=== PATIENT | female | born 1975 | race Caucasian/White ===

== ENCOUNTER 2021-04-07 06:03 | Emergency (ER) | payer OTHER, SELFPAY ==
[2021-04-07 06:08] VITALS: BP 136/71; PULSE 89; RESP 16; TEMP 37; O2SAT 99
--- NOTE | 2021-04-07 08:06 | ED.SKABFB ---
HPI - Skin/Abscess/Foreign Bdy General Chief complaint: Skin/Abscess/Foreign Body Stated complaint: left upper posterior leg abscess Time Seen by Provider: 04/07/21 08:03 Source: patient Mode of arrival: ambulatory Limitations: no limitations History of Present Illness HPI narrative: 45 years old white female presents with questionable spider bite at the back of left thigh 4 days ago. Patient works in a warehouse, sleeps in the basement. Patient is diabetic. Patient denies any fever, chills, nausea, vomiting. Related Data Allergies Allergy/AdvReac Type Severity Reaction Status Date / Time amoxicillin Allergy Unknown Hives Verified 04/07/21 06:12 erythromycin base Allergy Unknown Hives Verified 04/07/21 06:12 Penicillins Allergy Unknown Unknown Verified 04/07/21 06:12 Review of Systems Review of Systems: CONSTITUTIONAL: Denies fever, chills, or sweats. EYES: Denies visual changes, redness, or discharge. ENT: Denies rhinorrhea, congestion, sore throat, or otalgia. CARDIOVASCULAR: Denies chest pain, palpitations, or edema. RESPIRATORY: Denies cough or dyspnea. GASTROINTESTINAL: Denies abdominal pain, nausea, vomiting, or diarrhea. GENITOURINARY: Denies dysuria or hematuria. SKIN: Denies rash or itching. MUSCULOSKELETAL: Denies back pain, joint pain, or myalgia. NEUROLOGIC: Denies headache, numbness, or weakness. PSYCHIATRIC: Denies anxiety or depression. Exam Narrative: General appearance: Well-developed, well-nourished Skin: Normal color, 2 cm x 3 cm red spot at the back of left thigh, with an opening in the middle of it, no discharge, tender, subcutaneous induration, no fluctuation Head: Normocephalic, nontraumatic Chest and respiratory: Airway patent, no respiratory distress, no accessory muscle use Heart: Regular rate/rhythm Musculoskeletal: Normal range of motion, nontender back Neurologic: Alert and oriented ?3, Course Course Emergency Course: Stable Vital Signs Vital signs: Vital Signs Temperature 37.0 C 04/07/21 06:08 Pulse Rate 89 04/07/21 06:08 Respiratory Rate 16 04/07/21 06:08 Blood Pressure 136/71 04/07/21 06:08 Pulse Oximetry 99 04/07/21 06:08 Temperature 37.0 C 04/07/21 06:08 Pulse Rate 89 04/07/21 06:08 Respiratory Rate 16 04/07/21 06:08 Blood Pressure 136/71 04/07/21 06:08 Pulse Oximetry 99 04/07/21 06:08 MDM - Skin/Abscess/Foreign Bdy MDM Narrative Medical decision making narrative: Questionable insect bite with localized cellulitis Lab Data Result diagrams: 04/07/21 08:13 04/07/21 08:13 Labs: Lab Results 04/07/21 04/07/21 Range/Units 08:13 08:13 WBC 6.4 (4.5-10.0) K/mm3 RBC 4.43 (4.2-5.4) M/mm3 Hgb 13.3 (12.0-15.0) g/dL Hct 39.1 (37.0-47.0) % MCV 88.3 (80-100) fl MCH 30.0 (26-34) pg MCHC 34.0 (32-36) g/dl RDW 13.4 (11.5-14.5) % Plt Count 141 L (150-375) k/mm3 MPV 9.8 (7.4-10.4) fl Immature Gran % (Auto) 0.2 (0-0.5) % Neut % (Auto) 57.5 (45.5-73.1) % Lymph % (Auto) 30.8 (18.3-44.2) % Wythe % (Auto) 8.2 (2.6-8.5) % Eos % (Auto) 2.8 (0-4.4) % Baso % (Auto) 0.5 (0.2-1.2) % Lymph # (Auto) 1.96 (0.9-3.2) K/mm3 Wythe # (Auto) 0.5 (0.1-0.6) K/mm3 Eos # (Auto) 0.2 (0-0.3) K/mm3 Baso # (Auto) 0.0 (0.0-0.1) K/mm3 Abs Immat Gran (auto) 0.01 (0.00-0.031) K/mm3 Absolute Neuts (auto) 3.7 (1.3-6.7) K/mm3 Absolute Nucleated RBC 0.0 (0.0-0.012) K/mm3 Nucleated RBC % 0.0 (0.0-0.2) % Sodium 137 (137-145) mmol/L Potassium 3.7 (3.4-5.0) mmol/L Chloride 101 (98-107) mmol/L Carbon Dioxide 30 (22-30) mmol/L Anion Gap 6 L (8-16) mmol/L BUN 10
[2021-04-07 08:19] LABS: Basophils Percent Auto 0.5 % (0.2-1.2); Eosinophils Absolute Auto 0.2 K/mm3 (0-0.3); Eosinophils Percent Auto 2.8 % (0-4.4); Hematocrit 39.1 % (37.0-47.0); Hemoglobin 13.3 g/dL (12.0-15.0); Immature Granulocyte Absolute 0.01 K/mm3 (0.00-0.031); Immature Granulocyte Percent A 0.2 % (0-0.5); Lymphocytes Absolute Auto 1.96 K/mm3 (0.9-3.2); Lymphocytes Percent Auto 30.8 % (18.3-44.2); Mean Corpuscular Volume 88.3 fl (80-100); Mean Platelet Volume 9.8 fl (7.4-10.4); Monocytes Absolute Auto 0.5 K/mm3 (0.1-0.6); Monocytes Percent Auto 8.2 % (2.6-8.5); Neutrophils Absolute Auto 3.7 K/mm3 (1.3-6.7); Neutrophils Percent Auto 57.5 % (45.5-73.1); Platelet Count Result 141 k/mm3 (150-375); Red Blood Count 4.43 M/mm3 (4.2-5.4); Red Cell Distribution Width 13.4 % (11.5-14.5); White Blood Count 6.4 K/mm3 (4.5-10.0)
[2021-04-07] MEDS: IBUPROFEN 600 MG TABLET PO (08:23)
[2021-04-07] MEDS: HYDROcodone/acetaminophen (*CRX) 5-325 MG TABLET 1 TAB PO (08:24)
[2021-04-07 08:29] LABS: Anion Gap 6 mmol/L (8-16); Blood Urea Nitrogen 10 mg/dL (7-17); Calcium 9.1 mg/dL (8.4-10.2); Carbon Dioxide 30 mmol/L (22-30); Chloride 101 mmol/L (98-107); Estimated CRCL calculation 92 ml/min; Estimated Glomerular Filt Rate > 60; Glucose 106 mg/dL (65-110); Potassium 3.7 mmol/L (3.4-5.0); Sodium 137 mmol/L (137-145)
[2021-04-07 11:12] VITALS: BP 128/66; PULSE 80; RESP 14; TEMP 36.8; O2SAT 98
== END 2021-04-07 11:12 | disposition home or self-care (01) ==
PROVIDERS: Emergency Provider Emergency Medicine
DX: L03.116 Cellulitis of left lower limb (principal)
CPT/HCPCS: 36415; 80048; 85025; 96365; 96366; 99284; A9270; J3370

== ENCOUNTER 2022-01-12 03:14 | Outpatient (CLI) | payer BC, MEDICAID, SELFPAY ==
--- NOTE | 2022-01-05 12:56 | PC.NURSE ---
Pre Radiology instructions Report to the Outpatient Waiting Room, entrance under the green pavilion located off [facility], at time _0600 on date _01/12/22 . Procedure Time: __0800 . YOU MAY BE MONITORED AT HOSPITAL FOR UP TO 4 HOURS AFTER YOUR PROCEDURE. One visitor will be allowed to accompany the patient into the hospital. The visitor will be instructed to remain with patient at all times or leave the building due to restrictions. We will allow the visitor to come back to the postoperative area when patient is ready. NO children visitors allowed at this time. You and your visitor will be asked to self-screen and do not enter if you have any COVID symptoms. A mask is required within the hospital. Patients are to have no food or drink 6 hours prior to procedure time Driving will be restricted after the procedure, you must have a person to drive you home. Labs will be drawn in preop area and once reviewed, you will be taken to radiology area for procedure. When the procedure is completed, you will be taken to outpatient where you will be monitored for several hours. You may have one visitor in this area. Other than holding anti-coagulants, patient may take other medication(s) as scheduled. Prior to your appointment date patients are instructed to hold anti-coagulants after discussing with ordering provider to stop. If unable to discontinue anti-coagulants please notify radiologist. No aspirin or warfarin (Coumadin) for 7 days prior to the procedure. No clopidogrel (Plavix), ticagrelor (Brilinta), prasugrel (Effient) or dabigatran (Pradaxa) for 5 days prior to the procedure. No rivaroxaban (Xarelto), apixaban (Eliquis), dipyridamole (Aggrenox or Persantine) or cilostazol (Pletal) for 2 days prior to the procedure. Medications to discontinue per physician: NONE Date to take last dose: Please leave all valuables, including medications, at home the day of procedure. The hospital will not accept responsibility for valuables. Wear comfortable, loose fitting clothing. Follow any additional instructions given to you from ordering provider. Telephone instructions given to _PATIENT and asked if any additional questions and then verbalized understanding. Patient advised to call scheduling provider office or registration scheduling [phone] if any additional questions.
[2022-01-05 13:03] VITALS: BMI 36.5
[2022-01-12] VITALS (8 sets, daily range): BP systolic 123–159; BP diastolic 72–99; PULSE 57–64; RESP 14–16; TEMP 36.4; O2SAT 95–100
--- NOTE | ~2022-01-12 | XR_ITS ---
EXAMINATION: XR lumbar puncture diagnostic DATE: 01/12/2022 08:46 INDICATION: Migraine headaches TECHNIQUE: The procedure including the risks and benefits was discussed with the patient. Risks discu ssed included spinal headache, cerebrospinal fluid leak, bleeding, and infection. The patient underst ood the risks and agreed to proceed. A timeout was performed to verify the patient's name, date of , and procedure to be performed. The skin overlying the L4-L5 level was prepped and draped in usual sterile fashion. Subcutaneous 1% lidocaine was used for local anesthesia. A 5 inch 22 gauge s peter needle was advanced under fluoroscopic guidance. The needle was removed and the entry site was cleaned and dressed. There were no immediate complications. A total of 1 fluoroscopic image(s) were obtained. The amount of fluoroscopy time used during this procedure was 0.1 minutes. The patient was taken to the nursing area for observation. FINDINGS: Real-time fluoroscopy demonstrates the needle at the L4-L5 level. Opening pressure was 24 c m water. (Normal range is variably defined as 6-20 cm water and up to 25 cm water in obese patients. Pressure >25 cm water is one of the modified Dandy criteria for idiopathic intracranial hypertension) . 13 mL of clear, colorless fluid was collected in 4 tubes. Closing pressure was 15 cm water. IMPRESSION: 1. Successful fluoro-guided lumbar puncture with mildly elevated opening pressure of 24 cm water. Reviewed, dictated and finalized at location A. IMPRESSION: 1. Successful fluoro-guided lumbar puncture with mildly elevated opening pressu re of 24 cm water.
[2022-01-12 07:35] LABS: INR 1.4; Prothrombin Time 16.2 Seconds (11.1-14.7)
[2022-01-12 08:02] LABS: Mean Platelet Volume 10.6 fl (7.4-10.4); Platelet Count Result 168 k/mm3 (150-375)
[2022-01-12 09:21] LABS: Glucose CSF 107 mg/dL (40-70); Total Protein CSF 48 mg/dL (12-60)
[2022-01-12 10:02] LABS: Appearance CSF Clear (Clear); CSF source CSF; Color CSF Colorless (Colorless); Nucleated Cell CSF 2 /uL (0-5); Red Blood Cell CSF 0 (0-2)
[2022-01-12 10:03] LABS: Lymphocytes CSF 100 % (40-80)
== END 2022-01-12 11:02 | disposition home or self-care (01) ==
PROVIDERS: PCP Physician Assistant; Referring Provider Psychiatry & Neurology Neurology; Visit Provider Radiology Diagnostic Radiology
PROC: 009U3ZZ Drainage of Spinal Canal, Percutaneous Approach (ICD-10-PCS; CPT 62328; principal; 2022-01-12 08:00)
DX: G43.909 Migraine, unspecified, not intractable, without status migrainosus (principal); G93.2 Benign intracranial hypertension
CPT/HCPCS: 36415; 62328; 82945; 84157; 85049; 85610; 87015; 87070; 87102; 87116; 87206; 89051

== ENCOUNTER 2022-09-01 13:58 | Emergency (ER) | payer BC, OTHER, SELFPAY ==
--- NOTE | ~2022-09-01 | XR_ITS ---
EXAMINATION: XR chest 2V DATE: 09/01/2022 15:07 INDICATION: Productive cough TECHNIQUE: PA and lateral views of the chest are obtained. COMPARISON: 06/05/2016 FINDINGS: The lungs are free of acute opacities. No pleural effusion or pneumothorax. The cardiomedia stinal silhouette is normal. There is mild thoracic spondylosis. Surgical clips in the right upper qu adrant are likely from prior cholecystectomy. IMPRESSION: 1. No acute cardiopulmonary abnormality. Reviewed, dictated and finalized at location A.
[2022-09-01 14:11] LABS: Glucose Point of Care 474 mg/dl (65-105)
[2022-09-01 14:15] VITALS: BP 189/93; PULSE 86; RESP 16; TEMP 36.3; O2SAT 98
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
[2022-09-01 16:01] LABS: Basophils Absolute Auto 0.1 K/mm3 (0.0-0.1); Basophils Percent Auto 0.8 % (0.2-1.2); Eosinophils Absolute Auto 0.1 K/mm3 (0-0.3); Eosinophils Percent Auto 1.6 % (0-4.4); Immature Granulocyte Absolute 0.02 K/mm3 (0.00-0.031); Immature Granulocyte Percent A 0.3 % (0-0.5); Lymphocytes Absolute Auto 2.42 K/mm3 (0.9-3.2); Lymphocytes Percent Auto 32.4 % (18.3-44.2); Mean Corpuscular HGB Conc 34.9 g/dl (32-36); Mean Corpuscular Hemoglobin 30.5 pg (26-34); Mean Corpuscular Volume 87.6 fl (80-100); Mean Platelet Volume 11.3 fl (7.4-10.4); Monocytes Absolute Auto 0.4 K/mm3 (0.1-0.6); Monocytes Percent Auto 5.6 % (2.6-8.5); Neutrophils Absolute Auto 4.4 K/mm3 (1.3-6.7); Neutrophils Percent Auto 59.3 % (45.5-73.1); Platelet Count Result 157 k/mm3 (150-375); Red Blood Count 4.91 M/mm3 (4.2-5.4); Red Cell Distribution Width 13.2 % (11.5-14.5); White Blood Count 7.5 K/mm3 (4.5-10.0)
[2022-09-01] MEDS: SODIUM CHLORIDE 0.9% IV 1,000 ML 999 ML IV CONT ×2 (16:04→17:30)
[2022-09-01 16:06] LABS: Alanine Aminotransferase 45 U/L (6-35); Albumin Level 3.9 g/dL (3.5-5.1); Alkaline Phosphatase 133 U/L (38-126); Anion Gap 6 mmol/L (8-16); Aspartate Amino Transferase 34 U/L (14-36); Bilirubin,Total 0.5 mg/dL (0.2-1.3); Blood Urea Nitrogen 12 mg/dL (7-17); Carbon Dioxide 31 mmol/L (22-30); Chloride 97 mmol/L (98-107); Estimated CRCL calculation 125 ml/min; Estimated Glomerular Filt Rate > 60; Glucose 348 mg/dL (65-110); Lipase 95 U/L (23-300); Potassium 3.7 mmol/L (3.4-5.0); Sodium 134 mmol/L (137-145)
[2022-09-01 16:08] LABS: Pregnancy On Board Control Positive; Urine Pregnancy Test Negative
[2022-09-01 16:23] LABS: Appearance Urine Cloudy (Clear); Bacteria Urine Rare /hpf; Beta HCG Quantitative < 2.39 mIU/ML; Bilirubin Urine Negative (Negative); Blood Urine Negative (Negative); Color Urine Yellow (Yellow); Glucose Urine UA 3+ mg/dL (Negative); Ketones Urine 2+ mg/dL (Negative); Leukocyte Esterase Ur Trace LEU/UL (Negative); Need Manual Microscopic Reviewed; Nitrate Urine Negative (Negative); Non Pathogenic Casts 0-2; Protein Urine Negative (Negative); RBC Urine 0-2 /hpf (0-2); Squamous Epithelial Cell Urine Few /hpf (Few); Urobilinogen Urine 0.2 mg/dL (<2.0); WBC Urine 21-50 /hpf; pH Urine 5.5 (5.0-9.0)
[2022-09-01 16:27] LABS: Add Urine Microscopic? YES
[2022-09-01 16:47] LABS: Influenza A QL RT-PCR Negative (Negative); Influenza B QL RT-PCR Negative (Negative); SARS-CoV-2 RNA PCR Negative (Negative)
[2022-09-01 18:45] LABS: Glucose Point of Care 280 mg/dl (65-105)
[2022-09-01 18:46] VITALS: BP 141/81; PULSE 64; RESP 16; O2SAT 98
[2022-09-01] MEDS: metroNIDAZOLE 250 MG TABLET 2000 MG PO (20:19)
[2022-09-01] MEDS: FLUCONAZOLE 150 MG TABLET PO (20:20)
[2022-09-01 20:36] VITALS: BP 138/78; PULSE 80; RESP 18; O2SAT 99
== END 2022-09-01 21:14 | disposition home or self-care (01) ==
PROVIDERS: Emergency Provider Emergency Medicine; PCP Physician Assistant
DX: E11.65 Type 2 diabetes mellitus with hyperglycemia (principal); B37.31 Acute candidiasis of vulva and vagina; N76.0 Acute vaginitis; Z20.822 Contact with and (suspected) exposure to COVID-19; E78.5 Hyperlipidemia, unspecified; G93.2 Benign intracranial hypertension; K21.9 Gastro-esophageal reflux disease without esophagitis; K58.9 Irritable bowel syndrome, unspecified; M19.90 Unspecified osteoarthritis, unspecified site; M81.0 Age-related osteoporosis without current pathological fracture; F17.210 Nicotine dependence, cigarettes, uncomplicated; Z90.710 Acquired absence of both cervix and uterus
CPT/HCPCS: 36415; 71046; 80053; 81001; 81025; 82948; 83690; 84443; 84702; 85025; 87070; 87077; 87086; 87088; 87147; 87491; 87591; 87636; 87661; 87808; 96360; 96361; 99284; A9270; J7030

== ENCOUNTER 2022-09-05 09:37 | Emergency (ER) | payer BC, OTHER, SELFPAY ==
[2022-09-05 09:45] VITALS: BP 146/92; PULSE 81; RESP 20; TEMP 36.5; O2SAT 100
[2022-09-05 09:51] VITALS: PULSE 75
--- NOTE | 2022-09-05 09:53 | ED.GENADULT ---
HPI - General Adult General Chief complaint: Unspecified Stated complaint: strep throat Time Seen by Provider: 09/05/22 09:44 History of Present Illness HPI narrative: Patient is a 46-year-old female with a history of type 2 diabetes here due to multiple medical complaints. First, patient states that she feels fatigued and is having some soreness in her neck. She also states that her blood sugars have been elevated at home in the 280s, she does have a history of type 2 diabetes but has not been on any medicine for the past 5 years because her sugars were previously controlled. She has been attempting to get into her primary care doctor but has been unable unable to do so. Next, patient was seen here 2 days ago for vaginal itching and irritation in addition to dysuria and was told she had a yeast infection. Patient logged into her portal and saw that her culture grew group B strep and she is concerned that she did not receive antibiotics. She was also concerned that her urine had ketones in it given her history of DKA. She denies any nausea, vomiting, fevers or chills, sore throat, ear pain, upper respiratory infectious symptoms. Related Data Home Medications Medication Instructions Recorded Confirmed cholecalciferol (vitamin D3) 125 125 mcg PO DAILY 01/05/22 01/05/22 mcg (5,000 unit) capsule Allergies Allergy/AdvReac Type Severity Reaction Status Date / Time amoxicillin Allergy Intermediate Hives Verified 09/05/22 09:52 erythromycin base Allergy Intermediate Hives Verified 09/05/22 09:52 Penicillins Allergy Intermediate Unknown Verified 09/05/22 09:52 Review of Systems Review of Systems: Gen.: Reports weakness Eyes: Denies eye pain or visual change ENT: Denies congestion Respiratory: Denies shortness of breath or cough CV: Denies chest pain or palpitations GI: Denies abdominal pain nausea, emesis or diarrhea denies burning, urgency, frequency or hematuria Musculoskeletal: Reports neck pain Neuro: Denies numbness, tingling, weakness or focal weakness Skin: Denies rash Except as documented, all other systems reviewed and negative [facility], [facility] Past Medical History Medical History Anxiety Arthritis Diabetes GERD (gastroesophageal reflux disease) Hyperlipidemia IBS (irritable bowel syndrome) Idiopathic intracranial hypertension Osteoporosis Surgical History Surgical History H/O section (~1998) H/O hernia repair (~1998) H/O oophorectomy H/O tubal ligation (~1998) H/O: hysterectomy (~1998) History of urethral stent (~2009) Family History Family History Other Asthma Cancer Cerebrovascular accident Heart disease Hypertension Social History Social History Social History: current smoker Smoking packs per day: 0.5 Smoking cigarettes per day: 10.0 Smoking status: Never smoker Alcohol intake: never Substance use: current Substance use type: marijuana Exam Narrative: APPEARANCE: No acute distress, nontoxic, resting in bed EYES: EOMI HEENT: Normocephalic, atraumatic, OMM RESPIRATORY: No respiratory distress Clear to auscultation bilaterally with no rhonchi wheezing or rales. CARDIOVASCULAR: Regular rate and rhythm without murmurs rubs or gallops. ABDOMINAL: Soft, nontender, nondistended, no rebound or guarding MUSCULOSKELETAl: Moves all extremities. No clubbing, cyanosis or edema. NEURO: Awake and alert. Following commands, speech normal, no focal deficits SKIN:: Warm, dry. No rashes lesions or abrasions PSYCHIATRIC: Normal affect/mood Course Vital Signs Vital signs: Vital Signs Temperature 97.7 F 09/05/22 09:45 Pulse Rate 81 09/05/22 09:45 Respiratory Rate 20 09/05/22 09:45 Blood Pressure 146/92 H 09/05/22 09:45 Pu
[2022-09-05] MEDS: SODIUM CHLORIDE 0.9% IV 1,000 ML 999 ML IV CONT ×2 (10:13→11:34)
[2022-09-05] MEDS: KETOROLAC 15 MG/ML VIAL (*BKC) IV PUSH (10:13)
[2022-09-05 10:14] LABS: Device ROOM AIR; Fractional Inspired Oxygen 21 %; HCO3 VBG 29.1 mEq/l (24.0-30.0); PCO2 VBG 51.6 mmHg (42.0-48.0); pH VBG 7.369 (7.300-7.400)
[2022-09-05 10:17] VITALS: BP 134/79; PULSE 66; RESP 20; O2SAT 97
[2022-09-05 10:23] LABS: Basophils Percent Auto 0.7 % (0.2-1.2); Eosinophils Absolute Auto 0.1 K/mm3 (0-0.3); Eosinophils Percent Auto 2.4 % (0-4.4); Hemoglobin 16.1 g/dL (12.0-15.0); Immature Granulocyte Absolute 0.02 K/mm3 (0.00-0.031); Immature Granulocyte Percent A 0.4 % (0-0.5); Lymphocytes Absolute Auto 1.83 K/mm3 (0.9-3.2); Mean Corpuscular HGB Conc 33.5 g/dl (32-36); Mean Corpuscular Hemoglobin 29.9 pg (26-34); Mean Corpuscular Volume 89.1 fl (80-100); Monocytes Absolute Auto 0.3 K/mm3 (0.1-0.6); Monocytes Percent Auto 5.8 % (2.6-8.5); Neutrophils Absolute Auto 3.1 K/mm3 (1.3-6.7); Neutrophils Percent Auto 56.7 % (45.5-73.1); Platelet Count Result 153 k/mm3 (150-375); Red Blood Count 5.39 M/mm3 (4.2-5.4); Red Cell Distribution Width 13.2 % (11.5-14.5); White Blood Count 5.4 K/mm3 (4.5-10.0)
[2022-09-05 10:44] LABS: Alanine Aminotransferase 53 U/L (6-35); Albumin Level 4.1 g/dL (3.5-5.1); Alkaline Phosphatase 131 U/L (38-126); Anion Gap 6 mmol/L (8-16); Aspartate Amino Transferase 41 U/L (14-36); Bilirubin,Total 0.6 mg/dL (0.2-1.3); Blood Urea Nitrogen 13 mg/dL (7-17); Carbon Dioxide 30 mmol/L (22-30); Chloride 100 mmol/L (98-107); Estimated CRCL calculation 108 ml/min; Estimated Glomerular Filt Rate > 60; Glucose 300 mg/dL (65-110); Potassium 4.3 mmol/L (3.4-5.0); Sodium 136 mmol/L (137-145)
[2022-09-05 10:51] LABS: Hemoglobin A1C 12.4 % (<5.7)
--- NOTE | 2022-09-05 11:12 | PC.NURSE ---
Report received from Tom SHIN
[2022-09-05 13:32] LABS: Appearance Urine Cloudy (Clear); Bacteria Urine 1+ /hpf; Bilirubin Urine Negative (Negative); Blood Urine Negative (Negative); Color Urine Yellow (Yellow); Glucose Urine UA 3+ mg/dL (Negative); Ketones Urine 3+ mg/dL (Negative); Leukocyte Esterase Ur Trace LEU/UL (Negative); Nitrate Urine Negative (Negative); Non Pathogenic Casts 0-2; Protein Urine Negative (Negative); RBC Urine 0-2 /hpf (0-2); Squamous Epithelial Cell Urine Few /hpf (Few); Urobilinogen Urine 0.2 mg/dL (<2.0)
[2022-09-05 13:49] LABS: Add Urine Microscopic? YES
[2022-09-05] MEDS: diphenhydrAMINE HCl INJ 50 MG/ML VIAL 25 MG IV PUSH (14:52)
[2022-09-05] MEDS: PROCHLORPERAZINE EDISYLATE 10 MG/2 ML VIAL IV PUSH (14:52)
== END 2022-09-05 15:40 | disposition home or self-care (01) ==
PROVIDERS: Emergency Provider Physician Assistant; PCP Physician Assistant
DX: R82.71 Bacteriuria (principal); B95.1 Streptococcus, group B, as the cause of diseases classified elsewhere; E11.9 Type 2 diabetes mellitus without complications; E78.5 Hyperlipidemia, unspecified; G93.2 Benign intracranial hypertension; K58.9 Irritable bowel syndrome, unspecified; K21.9 Gastro-esophageal reflux disease without esophagitis; M19.90 Unspecified osteoarthritis, unspecified site; M81.0 Age-related osteoporosis without current pathological fracture; Z90.710 Acquired absence of both cervix and uterus; F17.210 Nicotine dependence, cigarettes, uncomplicated
CPT/HCPCS: 36415; 80053; 81001; 82803; 83036; 85025; 87086; 87088; 87147; 96361; 96374; 96375; 99284; J0780; J1200; J1885; J7030

== ENCOUNTER 2023-03-29 10:03 | Emergency (ER) | payer SELFPAY ==
--- NOTE | ~2023-03-29 | CT_ITS ---
EXAMINATION: CT brain wo con DATE: 03/29/2023 11:53 INDICATION: Headache. TECHNIQUE: Computed tomography (CT) of the head was performed without intravenous contrast. The mA wa s adjusted according to patient size. Iterative reconstruction technique was employed. The dose-lengt h product was 605.33 mGy-cm. COMPARISON: Head CT 07/18/2012 FINDINGS: There is no intracranial hemorrhage, acute infarction, or abnormal intracranial mass lesion . The ventricles are normal in size. The orbits are normal. There is mild mucosal thickening in the p aranasal sinuses. The mastoid air cells are normal. IMPRESSION: 1. Normal brain. Reviewed, dictated and finalized at location A. [employer] IMPRESSION: 1. Normal brain.
--- NOTE | 2023-03-29 11:32 | ED.GENADULT ---
HPI - General Adult General Chief complaint: Headache Stated complaint: ERNANDEZ and nausea Time Seen by Provider: 03/29/23 16:29 History of Present Illness HPI narrative: Abigail Upton is a 47 y/o female with PMHx of Migraines and reports having the worst headache of her life that started at around 0920. She states that she sometimes she requires spinal taps to relieve her headaches but this headache is different. She also reports of nausea / she also reports of some blurry vision that started with the headache/ reports feeling sensitive to lights and sounds/ Denies numbness/tingling /weakness to her extremities Related Data Home Medications Medication Instructions Recorded Confirmed cholecalciferol (vitamin D3) 125 125 mcg PO DAILY 01/05/22 01/05/22 mcg (5,000 unit) capsule Allergies Allergy/AdvReac Type Severity Reaction Status Date / Time amoxicillin Allergy Intermediate Hives Verified 09/05/22 09:52 erythromycin base Allergy Intermediate Hives Verified 09/05/22 09:52 Penicillins Allergy Intermediate Unknown Verified 09/05/22 09:52 Review of Systems Review of Systems: All systems reviewed & are unremarkable except as noted in HPI and below PMFSH Past Medical History Medical History Anxiety Arthritis Diabetes GERD (gastroesophageal reflux disease) Hyperlipidemia IBS (irritable bowel syndrome) Idiopathic intracranial hypertension Osteoporosis Surgical History Surgical History H/O section (~1998) H/O hernia repair (~1998) H/O oophorectomy H/O tubal ligation (~1998) H/O: hysterectomy (~1998) History of urethral stent (~2009) Family History Family History Other Asthma Cancer Cerebrovascular accident Heart disease Hypertension Social History Social History Social History: current smoker Smoking packs per day: 0.5 Smoking cigarettes per day: 10.0 Smoking status: Never smoker Alcohol intake: never Substance use: current Substance use type: marijuana Exam Const: General: healthy appearing, no acute distress and alert Nutritional Appearance: well nourished Orientation/consciousness: patient oriented x3 Limitations: no limitations HENMT: Head: normal to inspection Ears: external ears normal Face/Nose/Sinus: Normal external nose present Face and sinus: normal facial exam Mouth: Yes Normal oral and palatal mucosa present Eyes: Conjunctivae: conjunctivae normal Pupils: Equal, round and reactive pupils present EOM: EOMs intact bilaterally Neck: Neck: normal visual inspection Chest: Chest palpation & inspection: normal inspection of the chest Resp: Effort & Inspection: normal respiratory effort Cardio: Rate: regular rate Rhythm: regular rhythm GI: GI Palp: Yes Soft to palpation Auscultation: normal bowel sounds Skin: General skin exam: normal color Rashes: no rashes Wounds: no wounds Neuro: General: patient oriented x3 Cranial nerves: Yes Nystagmus not present Speech: normal speech Gait exam (Neuro): Normal gait present Extrem: General: normal to inspection Psych: Mental Status: mental status grossly normal Course Vital Signs Vital signs: Vital Signs Temperature 37.1 C 03/29/23 11:35 Pulse Rate 68 03/29/23 11:35 Respiratory Rate 18 03/29/23 11:35 Blood Pressure 182/86 H 03/29/23 11:35 Pulse Oximetry 99 03/29/23 11:35 Oxygen Delivery Room Air 03/29/23 11:35 Temperature 36.2 C L 03/29/23 16:25 Pulse Rate 60 03/29/23 16:25 Respiratory Rate 15 03/29/23 16:25 Blood Pressure 162/91 H 03/29/23 16:25 Pulse Oximetry 97 03/29/23 16:25 Oxygen Delivery Room Air 03/29/23 11:35 Medical Decision Making MDM Narrative Medical decision making narrative: Patient presents with complaints of severe tensi
[2023-03-29 11:35] VITALS: BP 182/86; PULSE 68; RESP 18; TEMP 37.1; O2SAT 99
[2023-03-29 12:44] LABS: Basophils Absolute Auto 0.1 K/mm3 (0.0-0.1); Basophils Percent Auto 0.7 % (0.2-1.2); Eosinophils Absolute Auto 0.1 K/mm3 (0-0.3); Eosinophils Percent Auto 0.9 % (0-4.4); Hematocrit 46.3 % (37.0-47.0); Hemoglobin 15.3 g/dL (12.0-15.0); Immature Granulocyte Absolute 0.02 K/mm3 (0.00-0.031); Immature Granulocyte Percent A 0.2 % (0-0.5); Lymphocytes Absolute Auto 1.37 K/mm3 (0.9-3.2); Lymphocytes Percent Auto 15.7 % (18.3-44.2); Mean Corpuscular Hemoglobin 30.2 pg (26-34); Mean Corpuscular Volume 91.5 fl (80-100); Mean Platelet Volume 10.6 fl (7.4-10.4); Monocytes Absolute Auto 0.4 K/mm3 (0.1-0.6); Monocytes Percent Auto 4.3 % (2.6-8.5); Neutrophils Absolute Auto 6.8 K/mm3 (1.3-6.7); Neutrophils Percent Auto 78.2 % (45.5-73.1); Platelet Count Result 198 k/mm3 (150-375); Red Blood Count 5.06 M/mm3 (4.2-5.4); Red Cell Distribution Width 13.4 % (11.5-14.5); White Blood Count 8.7 K/mm3 (4.5-10.0)
[2023-03-29] MEDS: KETOROLAC 30 MG/ML VIAL (*BKC) IV PUSH (12:47)
[2023-03-29] MEDS: PROCHLORPERAZINE EDISYLATE 10 MG/2 ML VIAL IV PUSH (12:47)
[2023-03-29] MEDS: diphenhydrAMINE HCl INJ 50 MG/ML VIAL 25 MG IV PUSH (12:47)
[2023-03-29 12:54] LABS: Alanine Aminotransferase 41 U/L (6-35); Albumin Level 4.4 g/dL (3.5-5.1); Alkaline Phosphatase 100 U/L (38-126); Anion Gap 6 mmol/L (8-16); Aspartate Amino Transferase 35 U/L (14-36); Bilirubin,Total 0.5 mg/dL (0.2-1.3); Blood Urea Nitrogen 10 mg/dL (7-17); Calcium 9.4 mg/dL (8.4-10.2); Carbon Dioxide 34 mmol/L (22-30); Chloride 102 mmol/L (98-107); Estimated CRCL calculation 106 ml/min; Estimated Glomerular Filt Rate > 60; Glucose 147 mg/dL (65-110); Potassium 3.8 mmol/L (3.4-5.0); Sodium 142 mmol/L (137-145)
[2023-03-29 12:55] VITALS: BP 175/82; PULSE 60; RESP 14; O2SAT 98
[2023-03-29 13:18] LABS: Partial Thromboplastin Time 31.7 SECONDS (22.3-36.8); Prothrombin Time 13.4 Seconds (11.1-14.7)
[2023-03-29 16:25] VITALS: BP 162/91; PULSE 60; RESP 15; TEMP 36.2; O2SAT 97
== END 2023-03-29 16:53 | disposition home or self-care (01) ==
PROVIDERS: Emergency Provider Nurse Practitioner Family; PCP Physician Assistant
DX: G44.209 Tension-type headache, unspecified, not intractable (principal); E11.9 Type 2 diabetes mellitus without complications; G93.2 Benign intracranial hypertension; E78.5 Hyperlipidemia, unspecified; K58.9 Irritable bowel syndrome, unspecified; K21.9 Gastro-esophageal reflux disease without esophagitis; M81.0 Age-related osteoporosis without current pathological fracture; M19.90 Unspecified osteoarthritis, unspecified site; F17.210 Nicotine dependence, cigarettes, uncomplicated; Z90.710 Acquired absence of both cervix and uterus
CPT/HCPCS: 36415; 70450; 80053; 85025; 85610; 85730; 96374; 96375; 99284; J0780; J1100; J1200; J1885

== ENCOUNTER 2023-12-04 08:13 | Emergency (ER) | payer SELFPAY ==
--- NOTE | ~2023-12-04 | XR_ITS ---
EXAMINATION: XR ribs RT 2V w CXR 2V DATE: 12/04/2023 09:06 INDICATION: Chest discomfort TECHNIQUE: PA and lateral views of the chest and 3 views of the right ribs were obtained. COMPARISON: Chest radiograph dated 09/01/2022 FINDINGS: No rib fractures identified. Lungs are clear with no focal airspace opacities, pulmonary edema, pleur al effusion or pneumothorax. Cardiomediastinal silhouette is normal. Cholecystectomy clips in right u pper quadrant. Mild thoracic spondylosis. Mild lumbar dextrocurvature with mild spondylosis. IMPRESSION: 1. No rib fracture or acute cardiopulmonary disease. Reviewed, dictated and finalized at location A.
[2023-12-04 08:16] VITALS: BP 153/89; PULSE 79; RESP 16; TEMP 36.4; O2SAT 96
[2023-12-04 08:20] VITALS: O2SAT 97
[2023-12-04 08:40] VITALS: O2SAT 95
[2023-12-04 08:45] VITALS: BP 153/94; PULSE 70; RESP 18; O2SAT 97
[2023-12-04 08:53] LABS: Basophils Percent Auto 0.9 % (0.2-1.2); Eosinophils Absolute Auto 0.1 K/mm3 (0-0.3); Hematocrit 46.9 % (37.0-47.0); Hemoglobin 16.3 g/dL (12.0-15.0); Immature Granulocyte Absolute 0.01 K/mm3 (0.00-0.031); Immature Granulocyte Percent A 0.2 % (0-0.5); Lymphocytes Absolute Auto 1.76 K/mm3 (0.9-3.2); Lymphocytes Percent Auto 38.2 % (18.3-44.2); Mean Corpuscular HGB Conc 34.8 g/dl (32-36); Mean Corpuscular Volume 89.2 fl (80-100); Mean Platelet Volume 10.9 fl (7.4-10.4); Monocytes Absolute Auto 0.3 K/mm3 (0.1-0.6); Monocytes Percent Auto 5.4 % (2.6-8.5); Neutrophils Absolute Auto 2.4 K/mm3 (1.3-6.7); Neutrophils Percent Auto 52.3 % (45.5-73.1); Platelet Count Result 171 k/mm3 (150-375); Red Blood Count 5.26 M/mm3 (4.2-5.4); Red Cell Distribution Width 13.1 % (11.5-14.5); White Blood Count 4.6 K/mm3 (4.5-10.0)
[2023-12-04 09:01] VITALS: O2SAT 97
[2023-12-04 09:03] LABS: Add Urine Microscopic? YES; Appearance Urine Turbid (Clear); Bacteria Urine 4+ /hpf; Bilirubin Urine Negative (Negative); Blood Urine 1+ (Negative); Color Urine Yellow (Yellow); Glucose Urine UA 3+ mg/dL (Negative); Ketones Urine Trace mg/dL (Negative); Leukocyte Esterase Ur 1+ LEU/UL (Negative); Need Manual Microscopic Reviewed; Nitrate Urine Negative (Negative); Protein Urine 1+ mg/dL (Negative); RBC Urine 0-2 /hpf (0-2); Specific Grav Ur 1.041 (1.001-1.035); Squamous Epithelial Cell Urine Many /hpf (Few); Urobilinogen Urine 0.2 mg/dL (<2.0); WBC Urine 51-100 /hpf (0-3); pH Urine 5.5 (5.0-9.0)
[2023-12-04 09:08] LABS: Alanine Aminotransferase 48 U/L (6-35); Albumin Level 4.2 g/dL (3.5-5.1); Alkaline Phosphatase 105 U/L (38-126); Anion Gap 7 mmol/L (4-12); Aspartate Amino Transferase 44 U/L (14-36); Bilirubin,Total 0.8 mg/dL (0.2-1.3); Blood Urea Nitrogen 9 mg/dL (7-17); Carbon Dioxide 29 mmol/L (22-30); Chloride 98 mmol/L (98-107); Estimated CRCL calculation 119 ml/min; Estimated Glomerular Filt Rate > 60; Glucose 337 mg/dL (65-110); Sodium 134 mmol/L (137-145)
[2023-12-04 09:19] LABS: Potassium 3.8 mmol/L (3.4-5.0)
--- NOTE | 2023-12-04 10:20 | ED.GENADULT ---
HPI - General Adult General Chief complaint: Urogenital-Female Stated complaint: kidney infection Time Seen by Provider: 12/04/23 08:17 History of Present Illness HPI narrative: Patient is a 48 year old female who presents ER with multiple concerns. First concern is burning urination. Ongoing over last couple days. Associated with a yeast infection that she has had for several weeks. She has tried [id number] medication that only causes discomfort and swelling of the area. She has had successful treatment with Diflucan in the past. Patient reports her blood sugars have been running a little bit higher. She takes insulin and does sliding scale treatments. Patient also reports that she has been having some right-sided posterior rib pain for the last month and a half. No known trauma. Worse with certain movements and direct palpation. No pain with deep breath. No runny nose or sore throat or productive cough. Related Data Home Medications Medication Instructions Recorded Confirmed cholecalciferol (vitamin D3) 125 125 mcg PO DAILY 01/05/22 01/05/22 mcg (5,000 unit) capsule Allergies Allergy/AdvReac Type Severity Reaction Status Date / Time amoxicillin Allergy Intermediate Hives Verified 09/05/22 09:52 erythromycin base Allergy Intermediate Hives Verified 09/05/22 09:52 Penicillins Allergy Intermediate Unknown Verified 09/05/22 09:52 Review of Systems Review of Systems: All systems reviewed & are unremarkable except as noted in HPI and below Constitutional: Constitutional: Reports no additional constitutional complaints ENT: Reports system reviewed and no additional complaints, except as documented Cardiovascular: Cardiovascular: Reports no additional cardiovascular complaints Respiratory: Respiratory: Reports no additional respiratory complaints Gastrointestinal: Gastrointestinal: Reports no additional gastrointestinal complaints Genitourinary: Genitourinary: Reports nocturia, Reports dysuria, Denies pelvic pain, Denies flank pain and Reports vaginal discharge PMFSH Past Medical History Medical History Anxiety Arthritis Diabetes GERD (gastroesophageal reflux disease) Hyperlipidemia IBS (irritable bowel syndrome) Idiopathic intracranial hypertension Osteoporosis Surgical History Surgical History H/O section (~1998) H/O hernia repair (~1998) H/O oophorectomy H/O tubal ligation (~1998) H/O: hysterectomy (~1998) History of urethral stent (~2009) Family History Family History Other Asthma Cancer Cerebrovascular accident Heart disease Hypertension Social History Social History Social History: current smoker Smoking packs per day: 0.5 Smoking cigarettes per day: 10.0 Smoking status: Never smoker Alcohol intake: never Substance use: current Substance use type: marijuana Exam Narrative: GENERAL: Well-appearing, well-nourished, and in no acute distress. HEAD: Normocephalic, atraumatic. ENT: Mucous membranes moist. CHEST: Clear to auscultation. No respiratory distress. Tenderness palpation right posterior chest wall under the 12th rib. HEART: Regular rate and rhythm. Normal peripheral pulses. ABDOMEN: Soft, nontender, nondistended. No CVA tenderness EXTREMITIES: Normal range of motion. No edema. NEURO: Alert and oriented x3. PSYCH: Normal mood and affect. Course Course Emergency Course: Patient resting comfortably. Informed of results. Will start on oral antibiotics also provided Diflucan for home. Recommend Tylenol and ibuprofen for musculoskeletal thoracic wall pain. Vital Signs Vital signs: Vital Signs Temperature 97.6 F 12/04/23 08:16 Pulse Rate 79 12/04/23 08:16 Respiratory Rate 16 12/04/23 08:16 Blood Pressure 153/
[2023-12-04 10:42] VITALS: BP 164/95; PULSE 74; RESP 18; O2SAT 98
== END 2023-12-04 10:46 | disposition home or self-care (01) ==
PROVIDERS: Emergency Provider Emergency Medicine
DX: N39.0 Urinary tract infection, site not specified (principal); B37.31 Acute candidiasis of vulva and vagina; M54.6 Pain in thoracic spine; E11.9 Type 2 diabetes mellitus without complications; E78.5 Hyperlipidemia, unspecified; F17.210 Nicotine dependence, cigarettes, uncomplicated
CPT/HCPCS: 36415; 71046; 71100; 80053; 81001; 85025; 87086; 87088; 99283